=== PATIENT | female | born 1995 ===

== ENCOUNTER 2024-01-14 22:30 | Emergency (ER) | payer OTHER ==
[~2024-01-14] VITALS: Ht 162.6 cm; Wt 85.3 kg
[2024-01-14 22:49] VITALS: BP 131/86
== END 2024-01-14 23:39 | disposition home or self-care (01) ==
LOC: ER 22:30
DX: S91.012A Laceration without foreign body, left ankle, initial encounter (principal); X58.XXXA Exposure to other specified factors, initial encounter
CPT/HCPCS: 12001; 99282-25